=== PATIENT | male | born 1965 | race Caucasian/White ===

== ENCOUNTER → 2017-04-28 | Day surgery (SDC) | payer OTHER ==
[~2017-04-28] VITALS: Ht 177.8 cm; Wt 136.1 kg
[2017-04-28 09:27] VITALS: BP 159/97
[2017-04-28 09:40] VITALS: BP 159/97
[2017-04-28 09:42] VITALS: BP 159/97
[2017-04-28 09:45] VITALS: BP 142/89
--- NOTE | 2017-04-28 09:46 | Procedure Note ---
Procedure detail Date of procedure: 04/28/17 Anesthesiologist: Arnold Bishop Complications: None Pre-procedure diagnosis: RIGHT sacroiliitis Post-procedure diagnosis: Same Indications for procedure: Very pleasant 51-year-old white male that has extreme point tenderness over the RIGHT SI joint. Patient complaining of RIGHT hip pain without radicular symptoms down the leg. He presents for RIGHT SI joint injection. Procedure detail: Procedure: Right sacroliliac joint injection under fluoroscopy Informed consent was obtained and the risk and benefits of the procedure were explained to the patient.~ The patient was taken to the procedure room and noninvasive monitors were placed including noninvasive blood pressure cuff and pulse oximeter.~ The patient was placed prone on the procedure table.~ The~ right hip was cleansed using Betadine as a cleansing solution.~ C-arm fluorosocpy was used to view the right SI joint.~ The skin and subcutaneous tissues were anesthetized using Lidocaine 1.5% and a 25-gauge needle.~ After this, a 22-gauge spinal needle was inserted under fluoroscopic guidance into the inferior aspect of the right SI joint.~ Omnipaque dye was injected and a good spread was seen throughout the joint.~ After this, approximately 5 mL of bupivacaine 0.25% and Depo-Medrol 40 mg was incrementally injected into the sacroiliac joint.~ The patient tolerated the procedure well with no complications.~ The patient was observed in the Pain Clinic, then discharged home neurologically intact.~ Plan and disposition: Patient was evaluated 10 minutes post procedure. He reports 90 percent improvement terms of his RIGHT hip pain. He'll return to see us for further evaluation. at [id number]
== END ==
LOC: PM 09:09
PROC: 3E0U33Z Introduction of Anti-inflammatory into Joints, Percutaneous Approach (ICD-10-PCS; principal; 2017-04-28)
PROC: 3E0U3BZ Introduction of Anesthetic Agent into Joints, Percutaneous Approach (ICD-10-PCS; 2017-04-28)
DX: M46.1 Sacroiliitis, not elsewhere classified (principal)

== ENCOUNTER 2017-06-09 11:50 | Day surgery (SDC) | payer OTHER ==
[~2017-06-09] VITALS: Ht 177.8 cm; Wt 136.1 kg
[~2017-06-09 11:50] MED LIST: CARAFATE1 GM PO; CEPHALEXIN500 MG PO; DIAZEPAM5 M1 PO; DICLOFENAC SODI75 M2 PO; DULOXETINE HYDR30 MG PO; FLAGYL500 MG PO; GABAPENTIN300 M1 PO; HYDROCODONE BIT1 T39 PO; LEVOTHYROXIN0.125 M1 PO; LEVOTHYROXIN0.125 MG PO; PANTOPRAZOLE SO40 M1 PO; PROTONIX 40MG T40 MG PO; SIMVASTATIN40 MG PO; TYLENOL WITH CO1 TA1 PO; VOLTAREN100 GM TP
[2017-06-09 12:27] VITALS: BP 133/79
[2017-06-09 13:00] VITALS: BP 133/79
[2017-06-09 13:01] VITALS: BP 133/79
--- NOTE | 2017-06-09 13:03 | Procedure Note ---
Procedure detail Date of procedure: 06/09/17 Anesthesiologist: Kamron Phillip M.D. Complications: None Pre-procedure diagnosis: Sacroiliitis Post-procedure diagnosis: Same Indications for procedure: This patient is a pleasant 51-year-old white male who we are treating for RIGHT hip pain. He is tender over the RIGHT SI joint. He does have positive Fatmata's test on the RIGHT side. He has had a previous RIGHT SI joint injection back in April. This did give him about 80 percent relief of his symptoms for a few weeks. He presents for repeat RIGHT SI joint injection today. Procedure detail: Procedure: Right sacroliliac joint injection under fluoroscopy Informed consent was obtained and the risk and benefits of the procedure were explained to the patient.~ The patient was taken to the procedure room and noninvasive monitors were placed including noninvasive blood pressure cuff and pulse oximeter.~ The patient was placed prone on the procedure table.~ The~ right hip was cleansed using Betadine as a cleansing solution.~ C-arm fluorosocpy was used to view the right SI joint.~ The skin and subcutaneous tissues were anesthetized using Lidocaine 1.5% and a 25-gauge needle.~ After this, a 22-gauge spinal needle was inserted under fluoroscopic guidance into the inferior aspect of the right SI joint.~ Omnipaque dye was injected and a good spread was seen throughout the joint.~ After this, approximately 5 mL of bupivacaine 0.25% and Depo-Medrol 40 mg was incrementally injected into the sacroiliac joint.~ The patient tolerated the procedure well with no complications.~ The patient was observed in the Pain Clinic, then discharged home neurologically intact.~ Plan and disposition: We will follow-up with this patient 2 weeks. We'll reevaluate his symptoms at that time. at 1303
[2017-06-09 13:11] VITALS: BP 143/89
== END 2017-06-09 13:12 | disposition home or self-care (01) ==
LOC: PM 11:50
PROC: 3E0U33Z Introduction of Anti-inflammatory into Joints, Percutaneous Approach (ICD-10-PCS; principal; 2017-06-09)
PROC: 3E0U3BZ Introduction of Anesthetic Agent into Joints, Percutaneous Approach (ICD-10-PCS; 2017-06-09)
DX: M46.1 Sacroiliitis, not elsewhere classified (principal)
CPT/HCPCS: G0260; J1040; Q9966